=== PATIENT | female | born 1985 | race Caucasian/White ===

== ENCOUNTER 2016-09-19 13:56 | Outpatient (CLI) | payer MEDICAID ==
[~2016-09-19] VITALS: Ht 165.1 cm; Wt 76.2 kg
[~2016-09-19 13:56] MED LIST: ACHD5005 PO; CEPH500C PO; CLIN150C17 PO; DOXY100C2 PO; HYDR-3714 PO; HYDR-757 PO; IBUP-1780 PO; MPR22TI TP; PRM25T PO; SULF-222 PO; SULF1TAB35 PO
[2016-09-19 14:04] VITALS: BP 111/82
[2016-09-19] MEDS ORDERED: PNV91TAB3 PO (14:12)
[2016-09-19] MEDS ORDERED: RANI75TA21 PO (14:12)
[2016-09-19] MEDS ORDERED: ACETAMINOPHEN 500 MG TAB (TYLENOL) ONE (14:38)
[2016-09-19] MEDS ORDERED: ACETAMINOPHEN 500 MG TAB (TYLENOL) PO ONE (14:45)
[2016-09-19 14:57] LABS: BASOPHILS # (AUTO) 0.1 10^3/uL (0.0-0.1); BASOPHILS % (AUTO) 1 % (0-10); EOSINOPHILS # (AUTO) 0.2 10^3/uL (0.0-0.3); EOSINOPHILS % (AUTO) 2 % (0-10); LYMPHOCYTES # (AUTO) 2.1 X 10^3 (1.0-4.0); LYMPHOCYTES % (AUTO) 25 % (12-44); MEAN CORPUSCULAR HEMOGLOBIN 34 PG (25-34); MEAN CORPUSCULAR HGB CONC 36 G/DL (32-36); MEAN CORPUSCULAR VOLUME 93 FL (80-99); MEAN PLATELET VOLUME 9.7 FL (7.4-10.4); MONOCYTES # (AUTO) 0.6 X 10^3 (0.0-1.0); MONOCYTES % (AUTO) 8 % (0-12); NEUTROPHILS # (AUTO) 5.3 X 10^3 (1.8-7.8); NEUTROPHILS % (AUTO) 65 % (42-75); PLATELET COUNT 200 10^3/uL (130-400); RED BLOOD COUNT 3.57 10^6/uL (4.35-5.85); WHITE BLOOD COUNT 8.3 10^3/uL (4.3-11.0)
[2016-09-19] MEDS ORDERED: URSO500T9 PO (15:23)
[2016-09-19 15:24] LABS: ALANINE AMINOTRANSFERASE 13 U/L (0-55); ANION GAP 8 MMOL/L (5-14); ASPARTATE AMINO TRANSFERASE 21 U/L (5-34); BILIRUBIN,TOTAL 0.4 MG/DL (0.1-1.0); BLOOD UREA NITROGEN 4 MG/DL (7-18); BUN/CREATININE RATIO 7; CALCIUM 8.2 MG/DL (8.5-10.1); CARBON DIOXIDE 22 MMOL/L (21-32); CHLORIDE 108 MMOL/L (98-107); CREATININE SERUM 0.58 MG/DL (0.60-1.30); GFR ESTIMATED > 60; GLUCOSE 103 MG/DL (70-105); POTASSIUM 3.5 MMOL/L (3.6-5.0); SODIUM 138 MMOL/L (135-145); TOTAL PROTEIN 5.2 G/DL (6.4-8.2)
[2016-09-19] MEDS ORDERED: FLU TRIvalent (5 YOA+) 2016-17 (AFLURIA) 0.5 ML IM ONE (15:45)
--- NOTE | 2016-09-20 09:03 | Physician Query-Final Dx ---
VÍCTOR BAÑUELOS 09/20/16 0903: Clinic Account Progress/Dx Physician Query: Please give diagnosis Date of Service Sep 19, 2016 at 13:56 VIDAL BARTLETT MD 09/22/16 1159: Clinic Account Progress/Dx DIAGNOSIS: Diagnosis false labor SARMAD,VÍCTOR Sep 20, 2016 09:03 VIDAL BARTLETT MD Sep 22, 2016 11:59
[2016-10-07] MEDS ORDERED: OXYC-465 PO (08:25)
[2016-10-07] MEDS ORDERED: DOCU100C37 PO (08:25)
[2016-10-07] MEDS ORDERED: IBUP-1780 PO (08:25)
== END 2016-09-19 16:05 | disposition home or self-care (01) ==
LOC: DELPENDDIS → LDRP 13:56 → WSo 13:56 → WS 15:54 → LDRP 15:54 → WSo 16:05
PROVIDERS: ATTEND Obstetrics & Gynecology
DX: O47.03 False labor before 37 completed weeks of gestation, third trimester (principal); Z3A.35 35 weeks gestation of pregnancy; Z23 Encounter for immunization
CPT/HCPCS: 36415; 80053; 85025; 90471; 99214

== ENCOUNTER 2016-09-28 14:02 | Outpatient (CLI) | payer MEDICAID ==
[~2016-09-28] VITALS: Ht 165.1 cm; Wt 71.9 kg
[~2016-09-28 14:02] MED LIST changes: +PNV91TAB3 PO; +RANI75TA21 PO; +URSO500T9 PO
[2016-09-28] MEDS ORDERED: RANI150T90 PO (14:17)
[2016-09-28 14:19] VITALS: BP 110/73
[2016-10-07] MEDS ORDERED: IBUP-1780 PO (08:25)
[2016-10-07] MEDS ORDERED: OXYC-465 PO (08:25)
[2016-10-07] MEDS ORDERED: DOCU100C37 PO (08:25)
== END 2016-09-28 14:31 | disposition home or self-care (01) ==
LOC: PREOP 14:02
PROVIDERS: ATTEND Obstetrics & Gynecology
DX: Z01.818 Encounter for other preprocedural examination (principal); Z11.2 Encounter for screening for other bacterial diseases; O34.211 Maternal care for low transverse scar from previous cesarean delivery; O99.013 Anemia complicating pregnancy, third trimester; D64.9 Anemia, unspecified
CPT/HCPCS: 87081

== ENCOUNTER 2016-10-06 06:04 | Inpatient (IN) | payer MEDICAID ==
[~2016-10-06] VITALS: Ht 165.1 cm; Wt 69.9 kg
[2016-10-06] VITALS (7 sets, daily range): BP systolic 99–129; BP diastolic 61–81
[~2016-10-06 06:04] MED LIST changes: +RANI150T90 PO
[2016-10-06] MEDS ORDERED: metroNIDAZOLE 500MG/100ML IVPB 100 ML IV ONE ×2 (06:15→07:00)
[2016-10-06] MEDS ORDERED: D5 LR IV SOLUTION 1,000 ML IV SCH ×2 (06:15→06:57)
[2016-10-06] MEDS ORDERED: ceFAZolin 2 GM/50 ML NS 50 ML IV ONE (06:15)
[2016-10-06] MEDS ORDERED: FAMOTIDINE 20MG/2ML IV (PEPCID) IV ONE ×2 (06:30→07:00)
[2016-10-06] MEDS ORDERED: CITRIC ACID/SOB CIT (BICITRA) 30 ML UDC PO ONE ×2 (06:30→07:00)
[2016-10-06] MEDS ORDERED: METOCLOPRAMIDE INJ 10 MG/2 ML (REGLAN) IV ONE ×2 (06:30→07:00)
[2016-10-06 06:50] LABS: BASOPHILS % (AUTO) 0 % (0-10); EOSINOPHILS # (AUTO) 0.2 10^3/uL (0.0-0.3); EOSINOPHILS % (AUTO) 2 % (0-10); LYMPHOCYTES # (AUTO) 2.2 X 10^3 (1.0-4.0); LYMPHOCYTES % (AUTO) 27 % (12-44); MEAN CORPUSCULAR HEMOGLOBIN 33 PG (25-34); MEAN CORPUSCULAR HGB CONC 36 G/DL (32-36); MEAN CORPUSCULAR VOLUME 94 FL (80-99); MEAN PLATELET VOLUME 9.6 FL (7.4-10.4); MONOCYTES # (AUTO) 0.9 X 10^3 (0.0-1.0); MONOCYTES % (AUTO) 12 % (0-12); NEUTROPHILS # (AUTO) 4.6 X 10^3 (1.8-7.8); NEUTROPHILS % (AUTO) 58 % (42-75); PLATELET COUNT 247 10^3/uL (130-400); WHITE BLOOD COUNT 7.9 10^3/uL (4.3-11.0)
[2016-10-06] MEDS ORDERED: ONDANSETRON 4 MG/2 ML (SDV) Z0FRAN ONE (06:59)
[2016-10-06] MEDS ORDERED: DEXAMETHASONE PF 10 MG/ML (DECADRON) VIAL ONE (06:59)
[2016-10-06] MEDS ORDERED: fentaNYL INJECTION 100 MCG/2 ML AMP ONE (06:59)
[2016-10-06] MEDS ORDERED: MEASLES,MUMPS,RUBELLA 1 EA INJ SC ONE (07:00)
[2016-10-06] MEDS ORDERED: MEPERIDINE (DEMEROL) INJ 100 MG/ML IM PRN (07:00)
[2016-10-06] MEDS ORDERED: PROMETHAZINE INJ 25 MG/ML (PHENERGAN) AMP IM PRN (07:00)
[2016-10-06] MEDS ORDERED: TETANUS,DIPTH,PERTUSS P/F (BOOSTRIX) 0.5 ML VIAL IM ONE (07:00)
[2016-10-06] MEDS ORDERED: LACTATED RINGERS 1,000 ML IV SCH ×2 (07:00)
[2016-10-06] MEDS ORDERED: ceFAZolin INJECTION 2,000 MG in NS (IVPB) 50 ML IV ONE (07:00)
[2016-10-06] MEDS ORDERED: LACTATED RINGERS 1,000 ML IV ONE (07:00)
--- NOTE | 2016-10-06 07:04 | History & Physical ---
History and Physical this patient is a 31-year-old for white female with an EDC of 4 3017 putting her at 30 757 weeks gestation. She had a history of hepatitis C. She has complicated by cholestasis of and by mild oligohydramnios. She is admitted now for repeat delivery. A GBS culture performed after 35 weeks gestation was negative. Patient denies rupture membranes or bleeding. Allergies are none Medications are vitamins ursodiol Past medical history, past surgical history, obstetric history, family history, social histories are per her antepartum record HEENT exam is normal Neck is supple no lymphadenopathy no thyromegaly Abdomen is gravid soft nontender nondistended Extreme show clubbing or cyanosis. There is no Homans sign. Pelvic exam is deferred Laboratory Tests 10/06/16 06:20 assessment and plan 37-5/7 weeks' gestation in a with cholestasis of and with mild oligohydramnios. This patient has had 4 previous deliveries and plan is for repeat delivery now. 37 5/7 weeks' gestation with cholestasis of and oligo and previous C- section Allergies and Home Medications Allergies Coded Allergies: codeine (Verified Allergy, Unknown, 09/28/16) Uncoded Allergies: TAPE (Allergy, Unknown, 03/28/07) Home Medications Pnv95/Ferrous Fumarate/FA 1 Each Tablet, 1 EACH PO DAILY, (Reported) Ranitidine HCl 150 Mg Tablet, 150 MG PO BID, (Reported) Ursodiol 500 Mg Tablet, 600 MG PO BID, (Reported) Clinical Quality Measures DVT/VTE Risk/Contraindication: Risk Factor Score Per Nursin RFS Level Per Nursing on Admit: 1=Low/No VTE PPX VIDAL BARTLETT MD Oct 06, 2016 7:04 am
[2016-10-06] MEDS ORDERED: D5 LR IV SOLUTION 1,000 ML IV ONE (07:07)
[2016-10-06] MEDS ORDERED: MIDAZOLAM 2 MG/2 ML (VERSED) VIAL ONE (07:45)
[2016-10-06] MEDS ORDERED: KETOROLAC 30 MG/ML VIAL ONE (07:59)
[2016-10-06] MEDS ORDERED: OXYTOCIN/NORMAL SALINE 500 ML IV ONE (07:59)
[2016-10-06] MEDS: OXYTOCIN/NORMAL SALINE 500 ML IV SCH ×2 (08:06→11:45)
[2016-10-06] MEDS: KETOROLAC 30 MG/ML VIAL IVP SCH ×3 (08:13→19:38)
[2016-10-06] MEDS ORDERED: diphenhydrAMINE 50 MG/ML INJ (BENADRYL) IV PRN (08:15)
[2016-10-06] MEDS ORDERED: NALOXONE 0.4 MG/ML 1 ML (NARCAN) VIAL IV PRN ×2 (08:15)
[2016-10-06] MEDS ORDERED: METOCLOPRAMIDE INJ 10 MG/2 ML (REGLAN) IV PRN (08:15)
[2016-10-06] MEDS ORDERED: ONDANSETRON 4 MG/2 ML (SDV) Z0FRAN IV PRN (08:15)
[2016-10-06] MEDS: oxyCODONE/APAP 10/325MG (PERCOCET 10) TABLET PO PRN ×3 (10:55→22:01)
--- NOTE | 2016-10-06 11:12 | OPERATIVE REPORT ---
PROCEDURE PHYSICIAN: VIDAL BARTLETT DATE OF PROCEDURE: 10/06/2016 DATE OF DICTATION: 10/06/2016 PREOPERATIVE DIAGNOSIS: 37-5/7 weeks gestation with 4 previous C-sections and with oligohydramnios and with cholestasis of . POSTOPERATIVE DIAGNOSIS: 37-5/7 weeks gestation with 4 previous C-sections and with oligohydramnios and with cholestasis of . OPERATIVE PROCEDURE: Repeat low transverse delivery of a viable female infant with Apgars of 8 and 8 at one and five minutes respectfully, weight of 5 pounds 7 ounces. Cord blood pH of 7.29. time of 0736. OPERATIVE DESCRIPTION: With the patient in the supine position, under satisfactory spinal anesthesia, she was prepped and draped usual fashion for abdominal surgery. Slaughter cath was placed in the urinary bladder. A repeat Pfannenstiel incision made through the skin with scalpel by removing the patient's previous lower Pfannenstiel incisional scar. The abdomen was entered in the usual manner. Bladder retractor placed in position, clean scalpel used to make a 4 cm hysterotomy incision transversely across the lower uterine segment; that was extended by blunt dissection as well. The membranes were intact and bulging through the incision. At this point they were ruptured releasing a small amount of clear fluid. A vigorous viable female infant was delivered via the uterine incision from a alejandra breech position. An ultrasound on the day prior had shown a alejandra breech position. The delivery was atraumatic. The infant was bulb suctioned on completion of delivery. The umbilical cord was doubly clamped and cut and infant passed to nurse Castro, the pediatric nurse in attendance for delivery. Cord bloods were obtained including an arterial blood pH, which had a value of 7.29. The placenta then was delivered spontaneously Mj which was normal with a 3 vessel cord. The uterus was exteriorized, interior wiped clean with a wet laparotomy sponge. Uterine incision then closed with running locked suture of 2-0 Vicryl. Hemostasis was satisfactory. The uterus was returned to the abdominal cavity. All blood clot and debris removed from the abdominal cavity. With sponge and needle counts correct and hemostasis assured, the anterior parietal peritoneum was closed running suture of 2-0 Vicryl. The rectus muscles were closed with that suture well. The rectus fascia was closed with 2-0 Vicryl. Subcutaneous tissue with 2-0 Vicryl and the skin was stapled. During the closure, the patient apparently did experience a seizure. This patient has a history of seizure disorder with last seizure being over year ago and she has not been on medications per her neurologist. She recovered promptly and was alert, oriented. She did not seem to be postictal following the seizure. The procedure was otherwise uncomplicated. Estimated blood loss was around 300 mL sponge and needle counts were correct on completion of delivery. The patient was transferred to the recovery room in stable condition. The had been taken stable to the full term nursery under the care of nurse Castro. Job ID: [id number] Dictated Date: 10/06/2016 08:06:07 Conservation Or Heritage Architect Date: 10/06/2016 11:05:50 / jens
[2016-10-06] MEDS ORDERED: CATHETER FLUSH 10 ML SYR IV SCH (14:00)
[2016-10-06] MEDS: DOCUSATE SODIUM 100 MG (COLACE) CAP PO SCH (19:38)
[2016-10-07] MEDS: KETOROLAC 30 MG/ML VIAL IVP SCH (02:42)
[2016-10-07 04:00] VITALS: BP 111/63
[2016-10-07] MEDS: oxyCODONE/APAP 10/325MG (PERCOCET 10) TABLET PO PRN ×3 (07:04→20:55)
--- NOTE | 2016-10-07 08:24 | Progress Note-Standard ---
Standard Progress Note Progress Notes/Assess & Plan Progress/Assessment & Plan patient is without complaint. She is ambulating, voiding, tolerating fairly well, has good pain control. Patient denies chest pain, denies shortness of breath, denies nausea vomiting, denies headache. Vital Signs Date Time Temp Pulse Resp B/P (MAP) Pulse Ox O2 Delivery O2 Flow Rate FiO2 10/07/16 04:00 98.0 77 18 111/63 98 Room Air 10/06/16 23:47 98.3 81 18 105/64 96 Room Air 10/06/16 20:00 98.7 66 17 115/61 98 Room Air 10/06/16 16:00 98.0 66 17 109/67 98 Room Air 10/06/16 12:00 97.3 74 20 110/62 96 Room Air 10/06/16 09:42 97.6 72 19 106/74 97 Room Air 10/06/16 09:05 97.0 88 22 99/63 100 Room Air I & O 10/07/16 07:00 Intake Total 4140 ml Output Total 1580 ml Balance 2560 ml Vital signs are stable. Patient afebrile. Abdomen is benign. Incision clean dry and intact. Fundus is firm below the umbilicus and nontender Extremities show clubbing cyanosis. Homans sign. There is some pretibial pitting edema that is normal assessment and Plan postoperative day number 1 status post repeat doing well. Plan is for routine convalescence care today and allow for discharge home tomorrow VIDAL BARTLETT MD Oct 07, 2016 8:24 am
[2016-10-07] MEDS ORDERED: IBUP-1780 PO (08:25)
[2016-10-07] MEDS ORDERED: DOCU100C37 PO (08:25)
[2016-10-07] MEDS ORDERED: OXYC-465 PO (08:25)
--- NOTE | 2016-10-07 08:27 | Discharge Instructions ---
Discharge Instructions Discharge Medications New, Converted or Re-Newed RX: RX on Chart Patient Instructions Patient Instructions: as directed Return to The Hospital For: as directed Activity & Diet Discharge Diet: No Restrictions Activity as Tolerated: No Orders-Post D/C & Referrals Follow Up Appt: RTC Thursday, October 13, 2016 at 930 a.m. for incision check. Call to make follow up appt. for patient in 4 weeks. Wound Care: Remove leo, apply benzoin and steri strips. Activity Per routine post instructions. Please call in RX to patient pharmacy. Diet as tolerated Patient may shower or tub bathe as desired. Continue home meds VIDAL BARTLETT MD Oct 07, 2016 8:27 am
[2016-10-07] MEDS ORDERED: BENZOCAINE/MENTHOL (DERMOPLAST) 56 ML CAN TP PRN ×2 (08:30→18:30)
[2016-10-07] MEDS: DOCUSATE SODIUM 100 MG (COLACE) CAP PO SCH ×2 (10:26→22:06)
[2016-10-07] MEDS: IBUPROFEN 800 MG (MOTRIN) TAB PO SCH ×3 (10:27→22:04)
[2016-10-07 10:30] VITALS: BP 118/65
[2016-10-07 16:20] VITALS: BP 116/75
[2016-10-07] MEDS ORDERED: CITRIC ACID/SOB CIT (BICITRA) 30 ML UDC PO ONE (18:30)
[2016-10-07 22:00] VITALS: BP 111/65
[2016-10-08 04:00] VITALS: BP 98/58
[2016-10-08] MEDS: IBUPROFEN 800 MG (MOTRIN) TAB PO SCH ×2 (04:20→10:15)
--- NOTE | 2016-10-08 08:14 | Progress Note-Standard ---
Standard Progress Note Progress Notes/Assess & Plan Progress/Assessment & Plan patient is without complaint. She is ambulating, voiding, tolerating fairly well, has good pain control. Patient denies chest pain, denies shortness of breath, denies nausea vomiting, denies headache. Vital Signs Date Time Temp Pulse Resp B/P (MAP) Pulse Ox O2 Delivery O2 Flow Rate FiO2 10/07/16 04:00 98.0 77 18 111/63 98 Room Air 10/06/16 23:47 98.3 81 18 105/64 96 Room Air 10/06/16 20:00 98.7 66 17 115/61 98 Room Air 10/06/16 16:00 98.0 66 17 109/67 98 Room Air 10/06/16 12:00 97.3 74 20 110/62 96 Room Air 10/06/16 09:42 97.6 72 19 106/74 97 Room Air 10/06/16 09:05 97.0 88 22 99/63 100 Room Air I & O 10/07/16 07:00 Intake Total 4140 ml Output Total 1580 ml Balance 2560 ml Vital signs are stable. Patient afebrile. Abdomen is benign. Incision clean dry and intact. Fundus is firm below the umbilicus and nontender Extremities show clubbing cyanosis. Homans sign. There is some pretibial pitting edema that is normal assessment and Plan postoperative day number 1 status post repeat doing well. Plan is for routine convalescence care today and allow for discharge home tomorrow October 08, 2016 Patient is without complaint. She is ambulating, voiding, tolerating by mouth well, denies chest pain, denies shortness of breath, denies headache, denies nausea vomiting, patient has good pain control and is requesting discharge home. Vital Signs Date Time Temp Pulse Resp B/P (MAP) Pulse Ox O2 Delivery O2 Flow Rate FiO2 10/08/16 04:00 97.8 77 18 98/58 97 Room Air 10/07/16 22:00 98.6 78 18 111/65 96 Room Air 10/07/16 16:20 98.3 76 18 116/75 98 Room Air 10/07/16 10:30 98.2 75 18 118/65 97 Room Air I & O 10/08/16 07:00 Intake Total 600 ml Output Total 400 ml Balance 200 ml vital signs are stable. Patient is afebrile. Fundus is firm below the umbilicus and nontender. The incision is clean dry and intact. There is notable ecchymoses. Incision. However there is no induration no erythema and the wound is appropriately tender or sensitive postoperative state. Extremities show no clubbing or cyanosis. There is no Homans sign. There is some pretibial pitting edema that is normal. Assessment and plan postoperative day number 2 status post repeat doing well. Plan is for discharge home with follow-up in clinic. Final Diagnosis repeat delivery at 37-5/7 weeks' gestation with oligohydramnios and with cholestasis of and with previous C-sections 4 VIDAL BARTLETT MD Oct 08, 2016 8:14 am
[2016-10-08] MEDS: oxyCODONE/APAP 10/325MG (PERCOCET 10) TABLET PO PRN (09:24)
[2016-10-08] MEDS: DOCUSATE SODIUM 100 MG (COLACE) CAP PO SCH (09:24)
[2016-10-08 09:26] VITALS: BP 112/67
== END 2016-10-08 11:00 | disposition home or self-care (01) | DRG 765 ==
LOC: EEVIPCON 06:04 → LDRP 06:04
PROVIDERS: ADMIT Obstetrics & Gynecology; ATTEND Obstetrics & Gynecology
PROC: 10D00Z1 Extraction of Products of Conception, Low, Open Approach (ICD-10-PCS; principal; 2016-10-06 07:10)
DX: O34.211 Maternal care for low transverse scar from previous cesarean delivery (principal); O26.613 Liver and biliary tract disorders in pregnancy, third trimester; K83.1 Obstruction of bile duct; O41.03X0 Oligohydramnios, third trimester, not applicable or unspecified; Z37.0 Single live birth; Z3A.37 37 weeks gestation of pregnancy
CPT/HCPCS: 36415; 80306; 85025; 86850; 86900; 86901

== ENCOUNTER 2017-12-28 10:40 | Outpatient (CLI) | payer SELFPAY ==
[~2017-12-28] VITALS: Ht 165.1 cm; Wt 79.4 kg
[~2017-12-28 10:40] MED LIST changes: +DOCU100C37 PO; +OXYC-465 PO
[2017-12-28 10:46] VITALS: BP 115/69
[2017-12-28] MEDS ORDERED: CRAN1TAB5 PO (10:54)
[2017-12-28] MEDS ORDERED: PNV11TAB5 PO (10:54)
[2017-12-28] MEDS ORDERED: URSO300C3 PO (10:54)
[2017-12-28] MEDS ORDERED: HYDR-700 PO (10:54)
== END 2017-12-28 11:05 | disposition home or self-care (01) ==
LOC: PREOP 10:40
PROVIDERS: ATTEND Obstetrics & Gynecology
DX: Z01.818 Encounter for other preprocedural examination (principal); Z11.2 Encounter for screening for other bacterial diseases; O34.219 Maternal care for unspecified type scar from previous cesarean delivery
CPT/HCPCS: 87081

== ENCOUNTER 2018-01-02 14:40 | Outpatient (CLI) | payer MEDICAID ==
[~2018-01-02 14:40] MED LIST changes: +CRAN1TAB5 PO; +HYDR-700 PO; +PNV11TAB5 PO; +URSO300C3 PO
[2018-01-02 14:50] VITALS: BP 123/81
[2018-01-02 15:20] LABS: BILIRUBIN,URINE NEGATIVE (NEGATIVE); CLARITY,URINE CLEAR; COLOR,URINE YELLOW; GLUCOSE, URINE (UA) NEGATIVE (NEGATIVE); KETONES,URINE NEGATIVE (NEGATIVE); LEUKOCYTE ESTERASE ,URINE 2+ (NEGATIVE); NITRITE,URINE NEGATIVE (NEGATIVE); PH,URINE 7 (5-9); PROTEIN,URINE NEGATIVE (NEGATIVE); UROBILINOGEN,URINE NORMAL (NORMAL)
[2018-01-02 15:38] LABS: BACTERIA,URINE NEGATIVE /HPF; RBC,URINE 0-2 /HPF
--- NOTE | 2018-01-03 11:03 | Physician Query-Final Dx ---
VÍCTOR BAÑUELOS 01/03/18 1103: Clinic Account Progress/Dx Physician Query: Please give diagnosis Date of Service Jan 02, 2018 at 14:40 VIDAL BARTLETT MD 01/03/18 1147: Clinic Account Progress/Dx DIAGNOSIS: Diagnosis False labor VÍCTOR BAÑUELOS Jan 03, 2018 11:03 VIDAL BARTLETT MD Jan 03, 2018 11:47
[2018-01-03] MEDS ORDERED: DOCU-143 PO (11:49)
[2018-01-03] MEDS ORDERED: IBUP-1780 PO (11:49)
[2018-01-03] MEDS ORDERED: OXYC-465 PO (11:49)
== END 2018-01-02 16:00 | disposition home or self-care (01) ==
LOC: WSo 14:40 → LDRP 14:50 → 3RD 14:55 → LDRP 14:55 → WSo 16:00
PROVIDERS: ATTEND Obstetrics & Gynecology
DX: O47.9 False labor, unspecified (principal)
CPT/HCPCS: 81000; 87088; 99213

== ENCOUNTER 2018-01-03 09:58 | Inpatient (IN) | payer MEDICAID, OTHER ==
[~2018-01-03] VITALS: Ht 165.1 cm; Wt 78.6 kg
[2018-01-03 10:08] VITALS: BP 119/71
[2018-01-03] MEDS ORDERED: D5 LR IV SOLUTION 1,000 ML IV SCH (10:11)
[2018-01-03] MEDS ORDERED: metroNIDAZOLE 500MG/100ML IVPB 100 ML IV ONE ×2 (10:15)
[2018-01-03] MEDS ORDERED: ceFAZolin 2 GM IV Premixed 50 ML IV ONE (10:15)
[2018-01-03] MEDS ORDERED: ceFAZolin INJECTION 2,000 MG in NS (IVPB) 50 ML IV ONE (10:15)
[2018-01-03] MEDS ORDERED: raNItidine INJECTION 50 MG in NS (IVPB) 50 ML IV ONE (10:30)
[2018-01-03] MEDS ORDERED: CATHETER FLUSH 10 ML SYR IV PRN (10:30)
[2018-01-03] MEDS ORDERED: CITRIC ACID/SOB CIT (BICITRA) 30 ML UDC PO ONE (10:30)
[2018-01-03] MEDS ORDERED: METOCLOPRAMIDE INJ 10 MG/2 ML (REGLAN) IV ONE (10:30)
[2018-01-03 10:46] LABS: AMPHETAMINE SCREEN, URINE NEGATIVE (NEGATIVE); BARBITURATE SCREEN URINE NEGATIVE (NEGATIVE); BENZODIAZEPINES SCREEN URINE NEGATIVE (NEGATIVE); CANNABINOID SCREEN, URINE POSITIVE (NEGATIVE); COCAINE SCREEN URINE NEGATIVE (NEGATIVE); METHADONE STAT NEGATIVE (NEGATIVE); METHAMPHETAMINE SCREEN URINE S NEGATIVE (NEGATIVE); OPIATE SCREEN URINE NEGATIVE (NEGATIVE); OXYCODONE STAT NEGATIVE (NEGATIVE); PROPOXYPHENE STAT NEGATIVE (NEGATIVE); TRICYCLIC ANTIDEPRESSANTS SCRE NEGATIVE (NEGATIVE)
[2018-01-03 10:48] VITALS: BP 114/72
[2018-01-03 10:57] LABS: BASOPHILS % (AUTO) 1 % (0-10); EOSINOPHILS # (AUTO) 0.1 10^3/uL (0.0-0.3); EOSINOPHILS % (AUTO) 1 % (0-10); HEMATOCRIT 34 % (35-52); HEMOGLOBIN 12.4 G/DL (11.5-16.0); LYMPHOCYTES # (AUTO) 1.5 X 10^3 (1.0-4.0); LYMPHOCYTES % (AUTO) 20 % (12-44); MEAN CORPUSCULAR HEMOGLOBIN 34 PG (25-34); MEAN CORPUSCULAR HGB CONC 37 G/DL (32-36); MEAN CORPUSCULAR VOLUME 91 FL (80-99); MEAN PLATELET VOLUME 9.6 FL (7.4-10.4); MONOCYTES # (AUTO) 0.5 X 10^3 (0.0-1.0); MONOCYTES % (AUTO) 7 % (0-12); NEUTROPHILS # (AUTO) 5.3 X 10^3 (1.8-7.8); NEUTROPHILS % (AUTO) 72 % (42-75); PLATELET COUNT 191 10^3/uL (130-400); RED BLOOD COUNT 3.69 10^6/uL (4.35-5.85); RED CELL DISTRIBUTION WIDTH 11.5 % (10.0-14.5); WHITE BLOOD COUNT 7.3 10^3/uL (4.3-11.0)
[2018-01-03] MEDS ORDERED: ceFAZolin 2 GM IV Premixed 50 ML ONE (11:29)
[2018-01-03] MEDS ORDERED: OXYTOCIN/NORMAL SALINE 500 ML IV ONE (11:43)
[2018-01-03] MEDS ORDERED: LACTATED RINGERS 1,000 ML IV ONE (11:43)
[2018-01-03] MEDS ORDERED: morphine PF (DURAMORPH) 10 MG/10 ML AMP ONE (11:43)
--- NOTE | 2018-01-03 11:46 | History & Physical ---
History and Physical Date Seen by Provider: Jan 03, 2018 Time Seen by Provider: 11:42 This patient is a 32-year-old via white female with a due date is 3017. This being complicated by cholestasis of which has been symptomatically controlled with ursodiol. Patient's is also complicated by gestational diabetes that has been controlled with metformin .Patient also has a history of hepatitis C and of gestational diabetes. She is also been followed for progressive oligohydramnios. Patient is now past 37 weeks gestation plan is for repeat delivery. Patient has requested removal of her fallopian tubes to decrease her lifetime risk for pelvic cancer. She understands and accepts that she will no longer be able to conceive after her fallopian tubes were removed. She accepts that undesired side effects in order to gain the protection and benefits of risk reduction by virtue of the salpingectomy patient denies rupture membranes or bleeding. She does have occasional contraction. She does feel baby moving. She had a GBS culture after 35 weeks gestation that was negative. Allergies are none Medications are vitamins ursodiol and metformin Past medical history, past surgical history, obstetric history, family history, social histories are per the antepartum record HEENT exam is normal Neck is supple no lymphadenopathy no thyromegaly Abdomen is gravid soft nontender nondistended Extremities show no clubbing cyanosis. There is no Homans sign. There is some pretibial pitting edema that is normal. Pelvic exam is deferred Laboratory Tests 01/03/18 10:37 Assessment and plan term at 37+ weeks' gestation in a patient with gestational diabetes/cholestasis of /hepatitis C/previous C-sections 5 /oligohydramnios/request for RR past. Surgical risks complications recovery and follow-up have been fully discussed. Patient accepts those risks and is ready to proceed. Term at 37-2/7 weeks' gestation with cholestasis of / gestational diabetes/oligohydramnios Allergies and Home Medications Allergies Coded Allergies: codeine (Verified Allergy, Unknown, 09/28/16) Uncoded Allergies: TAPE (Allergy, Unknown, 03/28/07) Home Medications Cranberry Conc/C/Bacill Coag 1 Each Tablet, 1 EACH PO DAILY, (Reported) Hydroxyzine HCl 25 Mg Tablet, 25 MG PO Q6H PRN for ITCHING, (Reported) Pxc897/FA/Omega3/Dha/Fish Oil 1 Each Tab.chew, 1 EACH PO DAILY, (Reported) Ranitidine HCl 150 Mg Tablet, 150 MG PO BID, (Reported) Ursodiol 300 Mg Capsule, 900 MG PO BID, (Reported) take 3 (300mg) tabs Patient Home Medication List Home Medication List Reviewed: Yes Clinical Quality Measures DVT/VTE Risk/Contraindication: Risk Factor Score Per Nursin RFS Level Per Nursing on Admit: 1=Low/No VTE PPX VIDAL BARTLETT MD Jan 03, 2018 11:46 am
[2018-01-03] MEDS ORDERED: BUPIVACAINE 0.5% 30 ML (SENSORCAINE) VIAL ONE (11:48)
[2018-01-03] MEDS ORDERED: DOCU-143 PO (11:49)
[2018-01-03] MEDS ORDERED: IBUP-1780 PO (11:49)
[2018-01-03] MEDS ORDERED: OXYC-465 PO (11:49)
--- NOTE | 2018-01-03 11:50 | Discharge Instructions ---
Discharge Instructions Discharge Medications New, Converted or Re-Newed RX: RX on Chart Patient Instructions Patient Instructions: As directed Return to The Hospital For: As directed Activity & Diet Discharge Diet: No Restrictions Activity as Tolerated: No Orders-Post D/C & Referrals Follow Up Appt: RTC on Sunday, January 11, 2018 at 930 a.m. for incision check. Call to make follow up appt. for patient in 4 weeks. Wound Care: Remove leo, apply benzoin and steri strips. Activity Per routine post instructions. Please call in RX to patient pharmacy. Diet as tolerated Patient may shower or tub bathe as desired. Continue home meds VIDAL BARTLETT MD Jan 03, 2018 11:50 am
[2018-01-03 11:54] LABS: ALANINE AMINOTRANSFERASE 11 U/L (0-55); ALBUMIN 3.2 GM/DL (3.2-4.5); ALKALINE PHOSPHATASE 126 U/L (40-136); BILIRUBIN,TOTAL 0.7 MG/DL (0.1-1.0); BUN/CREATININE RATIO 9; CALCIUM 8.5 MG/DL (8.5-10.1); CARBON DIOXIDE 18 MMOL/L (21-32); CHLORIDE 110 MMOL/L (98-107); CREATININE SERUM 0.66 MG/DL (0.60-1.30); GFR ESTIMATED > 60; GLUCOSE 78 MG/DL (70-105); POTASSIUM 3.4 MMOL/L (3.6-5.0); SODIUM 138 MMOL/L (135-145); TOTAL PROTEIN 5.6 GM/DL (6.4-8.2)
[2018-01-03] MEDS ORDERED: MIDAZOLAM 2 MG/2 ML (VERSED) VIAL ONE (12:26)
[2018-01-03] MEDS ORDERED: LACTATED RINGERS 1,000 ML IV SCH (12:36)
[2018-01-03] MEDS ORDERED: diphenhydrAMINE 50 MG/ML INJ (BENADRYL) IV PRN (12:45)
[2018-01-03] MEDS ORDERED: ONDANSETRON 4 MG/2 ML (SDV) Z0FRAN IV PRN (12:45)
[2018-01-03] MEDS ORDERED: NALOXONE 0.4 MG/ML 1 ML (NARCAN) VIAL IM PRN (12:45)
[2018-01-03] MEDS ORDERED: METOCLOPRAMIDE INJ 10 MG/2 ML (REGLAN) IV PRN (12:45)
[2018-01-03] MEDS ORDERED: D5 LR IV SOLUTION 1,000 ML IV ONE (13:42)
[2018-01-03] MEDS ORDERED: MEPERIDINE (DEMEROL) INJ 100 MG/ML IM PRN (13:45)
[2018-01-03] MEDS ORDERED: PROMETHAZINE INJ 25 MG/ML (PHENERGAN) AMP IM PRN (13:45)
[2018-01-03] MEDS ORDERED: TETANUS,DIPTH,PERTUSS P/F (BOOSTRIX) 0.5 ML VIAL IM ONE (13:45)
[2018-01-03] MEDS ORDERED: ONDANSETRON 4 MG/2 ML (SDV) Z0FRAN IVP PRN (13:45)
[2018-01-03] MEDS ORDERED: MEASLES,MUMPS,RUBELLA 1 EA INJ SC ONE (13:45)
[2018-01-03] MEDS: KETOROLAC 30 MG/ML VIAL IVP SCH ×2 (15:34→21:34)
[2018-01-03 16:53] VITALS: BP 106/65
[2018-01-03] MEDS: DOCUSATE SODIUM 100 MG (COLACE) CAP PO SCH (20:16)
[2018-01-03] MEDS: oxyCODONE/APAP 10/325MG (PERCOCET 10) TABLET PO PRN (20:16)
--- NOTE | 2018-01-03 20:43 | OPERATIVE REPORT ---
DATE OF SERVICE: 01/03/2018 PREOPERATIVE DIAGNOSES: Term at 37+ weeks' gestation with cholestasis of , gestational diabetes, oligohydramnios and previous C-sections x5. Request for risk reducing salpingectomy. POSTOPERATIVE DIAGNOSES: Term at 37+ weeks' gestation with cholestasis of , gestational diabetes, oligohydramnios and previous C-sections x5. OPERATIVE PROCEDURE: Repeat low transverse delivery of a viable female infant with Apgars of 8 and 9 at 1 and 5 minutes respectively, weight of 5 pounds 9 ounces. time of 12:22 and a cord blood pH was 7.29. Risk reducing salpingectomy. OPERATIVE DESCRIPTION: With the patient in supine position under satisfactory spinal analgesia, she was prepped and draped in usual fashion for abdominal surgery. Slaughter catheter was placed in the urinary bladder. A repeat Pfannenstiel incision was made through the skin with scalpel and the patient's abdomen entered in the usual manner. Bladder retractor placed in position, clean scalpel used to make a 4 cm hysterotomy incision transversely across the lower uterine segment. The lower uterine segment was exceedingly thin comprised of peritoneum and membranes. There was a large uterine window occupying the lower anterior uterine segment. There were some adhesions of the peritoneum to the anterior and lateral surface of the uterus. These were taken down by sweeping free. With the incision into the uterine cavity, fairly dark meconium fluid was released. The incision was extended bluntly and then a vigorous viable female infant was delivered via the uterine incision. with Apgars of 8 and 9 at 1 and 5 minutes respectively and now the stats were as noted above. The was bulb suctioned on delivery of the head. The infant had a spontaneous lusty cry, moved all extremities, had excellent tone and reflexes and was very quickly pink. After delivery, the umbilical cord was doubly clamped and cut, and the was passed to nurse Burton, the pediatric nurse in attendance for delivery. Cord bloods were obtained. Placenta delivered spontaneously Barker. It was normal with a 3-vessel cord. The uterus was exteriorized and to wipe clean with a wet laparotomy sponge. Uterine incision was closed with a running locked suture of 2-0 Vicryl, taking care to obliterate the uterine window. The patient had requested risk reducing salpingectomy at this point, that was performed and the right fallopian tube was grasped and elevated. There were some adhesions of the tube to the ovary. These were lysed sharply and bluntly with electrocautery. Eventually, the mesosalpinx was divided from proximal to distal end and then the proximal and distal pedicle was ligated with a 2-0 chromic gut suture and then the tube was removed sharply. Same procedure was performed on the left. There was some bleeding along the ovary edge on the left. This was controlled with [id number] suture of 2-0 Vicryl. With hemostasis assured, no abnormal pathology. Uterus was returned to abdominal cavity. All blood clot and debris removed from the abdominal cavity. With sponge, needle counts correct, hemostasis assured. The anterior parietal peritoneum and the rectus muscles were reapproximated. The rectus fascia was closed with 2-0 Vicryl, subcutaneous tissue with 2-0 Vicryl and the skin was stapled. Sponge and needle counts were correct on completion of delivery. Estimated blood loss for delivery was around 400 mL. The patient tolerated the procedure well and remained in the OR for recovery. The baby was taken stable to the full-term nursery. Job ID: [id number] DocumentID: [id number] Dictated Date: 01/03/2018 13:01:50 Coordinator Of Evaluation Date: 01/03/2018 20:42:16 Dictated By: VIDAL BARTLETT MD
[2018-01-03 20:59] VITALS: BP 118/72
[2018-01-04] VITALS: BP 95/55
[2018-01-04] MEDS: oxyCODONE/APAP 10/325MG (PERCOCET 10) TABLET PO PRN ×4 (01:23→19:38)
[2018-01-04] MEDS: KETOROLAC 30 MG/ML VIAL IVP SCH ×2 (03:18→19:52)
[2018-01-04 04:00] VITALS: BP 89/55
--- NOTE | 2018-01-04 07:44 | Postpartum Progress Note ---
Note Note Day # 1 Subjective: Covering this patient for Dr. Dexter, POD 1 RLTCS. Patient is without complaints. Ambulating, voiding. Tolerating a regular diet without nausea or vomiting. Normal lochia. Pain is well controlled with oral pain medications. Objective: Vital Sign - Last 24 Hours 01/03/18 01/03/18 01/03/18 01/03/18 10:08 10:48 16:53 20:59 Temp 98.0 96.9 97.1 Pulse 81 82 74 80 Resp 18 18 20 20 B/P (MAP) 119/71 (87) 114/72 (86) 106/65 (79) 118/72 (87) Pulse Ox 96 98 O2 Delivery Room Air Room Air Room Air Room Air 01/04/18 01/04/18 00:00 04:00 Temp 97.6 97.8 Pulse 72 69 Resp 20 16 B/P (MAP) 95/55 (68) 89/55 (66) Pulse Ox 98 99 O2 Delivery Room Air Room Air Intake and Output 01/03/18 01/03/18 01/04/18 15:00 23:00 07:00 Intake Total 150 ml 1450 ml Output Total 600 ml 850 ml Balance -450 ml 600 ml Physical Exam: General - Alert and oriented, no apparent distress Abdomen - Soft, appropriately tender to palpation, non-distended, fundus firm at umbilicus Extremities - no edema, negative Ananda's bilaterally Incision- c/d/i Assessment: POD 1 RLTCS Labs pending Plan: Routine care. Encourage breast feeding. Encourage ambulation. Ferrous sulfate supplementation. Plan for discharge tomorrow Vitals - Labs Vital Signs - I&O Vital Signs Date Time Temp Pulse Resp B/P (MAP) Pulse Ox O2 Delivery O2 Flow Rate FiO2 01/04/18 04:00 97.8 69 16 89/55 (66) 99 Room Air 01/04/18 00:00 97.6 72 20 95/55 (68) 98 Room Air 01/03/18 20:59 97.1 80 20 118/72 (87) 98 Room Air 01/03/18 16:53 96.9 74 20 106/65 (79) 96 Room Air 01/03/18 10:48 82 18 114/72 (86) Room Air 01/03/18 10:08 98.0 81 18 119/71 (87) Room Air I & O 01/04/18 07:00 Intake Total 1600 ml Output Total 1450 ml Balance 150 ml Labs Laboratory Tests 01/03/18 10:00: Urine Opiates Screen NEGATIVE, Urine Oxycodone Screen NEGATIVE, Urine Methadone Screen NEGATIVE, Urine Propoxyphene Screen NEGATIVE, Urine Barbiturates Screen NEGATIVE, Ur Tricyclic Antidepressants Screen NEGATIVE, Urine Phencyclidine Screen NEGATIVE, Urine Amphetamines Screen NEGATIVE, Urine Methamphetamines Screen NEGATIVE, Urine Benzodiazepines Screen NEGATIVE, Urine Cocaine Screen NEGATIVE, Urine Cannabinoids Screen POSITIVEH 01/03/18 10:37: White Blood Count 7.3, Red Blood Count 3.69L, Hemoglobin 12.4, Hematocrit 34L, Mean Corpuscular Volume 91, Mean Corpuscular Hemoglobin 34, Mean Corpuscular Hemoglobin Concent 37H, Red Cell Distribution Width 11.5, Platelet Count 191, Mean Platelet Volume 9.6, Neutrophils (%) (Auto) 72, Lymphocytes (%) (Auto) 20, Monocytes (%) (Auto) 7, Eosinophils (%) (Auto) 1, Basophils (%) (Auto) 1, Neutrophils # (Auto) 5.3, Lymphocytes # (Auto) 1.5, Monocytes # (Auto) 0.5, Eosinophils # (Auto) 0.1, Basophils # (Auto) 0.0, Sodium Level 138, Potassium Level 3.4L, Chloride Level 110H, Carbon Dioxide Level 18L, Anion Gap 10, Blood Urea Nitrogen 6L, Creatinine 0.66, Estimat Glomerular Filtration Rate > 60, BUN/ Creatinine Ratio 9, Glucose Level 78, Calcium Level 8.5, Total Bilirubin 0.7, Aspartate Amino Transf (AST/SGOT) 21, Alanine Aminotransferase (ALT/SGPT) 11, Alkaline Phosphatase 126, Total Protein 5.6L, Albumin 3.2 CLAUDIA GARDINER DO Jan 04, 2018 07:44
[2018-01-04] MEDS: DOCUSATE SODIUM 100 MG (COLACE) CAP PO SCH ×2 (07:49→20:12)
[2018-01-04] MEDS ORDERED: TETANUS,DIPTH,PERTUSS P/F (BOOSTRIX) 0.5 ML VIAL IM ONE (07:50)
[2018-01-04] MEDS: FAMOTIDINE 20 MG (PEPCID) TABLET PO PRN (07:53)
[2018-01-04 08:00] VITALS: BP 95/64
--- NOTE | 2018-01-04 08:13 | Anesthesia-Regional Post-Op ---
Regional Patient Condition Mental Status: Alert, Oriented x3 Circulation: Same as Pre-Op Headache: Absent Sensation: Full Recovery Motor Block: Absent Post Op Complications Complications None Follow Up Care/Instructions Patient Instructions None needed. Anesthesia/Patient Condition Patient is doing well, no complaints, stable vital signs, no apparent adverse anesthesia problems. No complications reported per nursing. TAMMIE MEJIA CRNA Jan 04, 2018 08:13
[2018-01-04] MEDS: IBUPROFEN 800 MG (MOTRIN) TAB PO SCH ×2 (11:10→17:35)
[2018-01-04 12:00] VITALS: BP 121/78
[2018-01-04 17:35] VITALS: BP 115/79
[2018-01-04] MEDS: OXYTOCIN/NORMAL SALINE 500 ML IV SCH (19:52)
[2018-01-05] VITALS: BP 103/65
[2018-01-05] MEDS: oxyCODONE/APAP 10/325MG (PERCOCET 10) TABLET PO PRN ×2 (00:28→06:18)
[2018-01-05] MEDS: IBUPROFEN 800 MG (MOTRIN) TAB PO SCH ×2 (00:28→06:18)
[2018-01-05 06:00] VITALS: BP 121/76
[2018-01-05] MEDS: FAMOTIDINE 20 MG (PEPCID) TABLET PO PRN (06:18)
--- NOTE | 2018-01-05 07:52 | Postpartum Progress Note ---
Note Note Day # 2 Subjective: Covering for Dr. Dexter. Patient is without complaints. Ambulating, voiding. Tolerating a regular diet without nausea or vomiting. Normal lochia. Pain is well controlled with oral pain medications. Objective: Vital Sign - Last 24 Hours 01/04/18 01/04/18 01/04/18 01/05/18 08:00 12:00 17:35 00:00 Temp 97.2 97.6 98.1 97.8 Pulse 102 79 88 71 Resp 16 18 18 18 B/P (MAP) 95/64 (74) 121/78 (92) 115/79 (91) 103/65 (78) Pulse Ox 99 96 96 97 O2 Delivery Room Air Room Air Room Air Room Air 01/05/18 06:00 Temp 97.6 Pulse 84 Resp 18 B/P (MAP) 121/76 (91) Pulse Ox 98 O2 Delivery Room Air Physical Exam: General - Alert and oriented, no apparent distress Abdomen - Soft, appropriately tender to palpation, non-distended, fundus firm at umbilicus Extremities - no edema, negative Ananda's bilaterally Incision- c/d/i leo Assessment: POD 2 RLTCS Plan: Routine care. Encourage breast feeding. Encourage ambulation. Ferrous sulfate supplementation. Plan for discharge today Vitals - Labs Vital Signs - I&O Vital Signs Date Time Temp Pulse Resp B/P (MAP) Pulse Ox O2 Delivery O2 Flow Rate FiO2 01/05/18 06:00 97.6 84 18 121/76 (91) 98 Room Air 01/05/18 00:00 97.8 71 18 103/65 (78) 97 Room Air 01/04/18 17:35 98.1 88 18 115/79 (91) 96 Room Air 01/04/18 12:00 97.6 79 18 121/78 (92) 96 Room Air 01/04/18 08:00 97.2 102 16 95/64 (74) 99 Room Air CLAUDIA GARDINER DO Jan 05, 2018 7:52 am
[2018-01-05 09:57] VITALS: BP 116/64
[2018-01-05] MEDS: DOCUSATE SODIUM 100 MG (COLACE) CAP PO SCH (09:58)
== END 2018-01-05 11:05 | disposition home or self-care (01) | DRG 765 ==
LOC: LDRP 09:58
PROVIDERS: ADMIT Obstetrics & Gynecology; ATTEND Obstetrics & Gynecology
PROC: 0UT70ZZ Resection of Bilateral Fallopian Tubes, Open Approach (ICD-10-PCS; 2018-01-03)
PROC: 10D00Z1 Extraction of Products of Conception, Low, Open Approach (ICD-10-PCS; principal; 2018-01-03 11:56)
DX: O26.62 Liver and biliary tract disorders in childbirth (principal); O34.211 Maternal care for low transverse scar from previous cesarean delivery; O98.42 Viral hepatitis complicating childbirth; B18.2 Chronic viral hepatitis C; K83.0 Cholangitis; O41.03X0 Oligohydramnios, third trimester, not applicable or unspecified; O24.425 Gestational diabetes mellitus in childbirth, controlled by oral hypoglycemic drugs; Z79.84 Long term (current) use of oral hypoglycemic drugs; Z3A.37 37 weeks gestation of pregnancy; Z40.03 Encounter for prophylactic removal of fallopian tube(s); Z23 Encounter for immunization; Z37.0 Single live birth
CPT/HCPCS: 36415; 80053; 80306; 81000; 85025; 86850; 86900; 86901; 87088; 90715; 99213

== ENCOUNTER 2018-01-07 21:51 | Emergency (ER) | payer MEDICAID, OTHER ==
[~2018-01-07] VITALS: Ht 165.1 cm; Wt 78.6 kg
[~2018-01-07 21:51] MED LIST changes: +DOCU-143 PO
[2018-01-07] MEDS ORDERED: RX-ONDANSETRON 4 MG ODT (ZOFRAN) PPK #4 SL STA (22:22)
[2018-01-07] MEDS ORDERED: CEPH-507 PO (22:26)
--- NOTE | 2018-01-07 22:27 | ED General ---
General Chief Complaint: Skin/Wound Problems Stated Complaint: INCISION BLEEDING Nursing Triage Note: DRAINING SITE Nursing Sepsis Screen: No Definite Risk (KAMILLA GRAHAM MD) History of Present Illness Date Seen by Provider: Jan 07, 2018 Time Seen by Provider: 22:16 Initial Comments This is a 32 y.o female presenting to the ED complaining of excessive incision bleeding that has been going on since Sunday. Pt is S/P and bilateral tubal excision on 01/[address] Dexter. Pt states that her leo were removed on 01/05 and that the bleeding started with removal. She states that the wound gapped open some and was approximated using steri strips. When pt got home she states that her wound started spurting blood. She reports soaking through numerous pads and having to change steri strips over the past couple days. Pt states it is worse when standing. She states that she picked up one of her children yesterday. Pt denies any trauma, but states that her kids like to jump on her. Pt denies fever, chills, abnormal discharge, mal odors, dizziness, lightheadedness, passing out, urinary symptoms, blood in urine or stool. Patient reports feeling anxious, hot flashes, lower abdominal pain. (SYL BLACK MED STUDENT) Allergies and Home Medications Allergies Coded Allergies: codeine (Verified Allergy, Unknown, 09/28/16) Uncoded Allergies: TAPE (Allergy, Unknown, 03/28/07) Home Medications Cephalexin 500 Mg Capsule, 500 MG PO QID Prescribed by: KAMILLA BIRMINGHAM on 01/07/18 2226 Cranberry Conc/C/Bacill Coag 1 Each Tablet, 1 EACH PO DAILY, (Reported) Docusate Sodium 100 Mg Capsule, 100 MG PO BID Prescribed by: VIDAL MUNROE on 01/03/18 1149 Hydroxyzine HCl 25 Mg Tablet, 25 MG PO Q6H PRN for ITCHING, (Reported) Ibuprofen 800 Mg Tablet, 800 MG PO Q6H PRN for PAIN Prescribed by: VIDAL MUNROE on 01/03/18 1149 Oxycodone HCl/Acetaminophen 1 Each Tablet, 1-2 TAB PO Q4H PRN for PAIN Prescribed by: VIDAL MUNROE on 01/03/18 1149 Fcn747/FA/Omega3/Dha/Fish Oil 1 Each Tab.chew, 1 EACH PO DAILY, (Reported) Ranitidine HCl 150 Mg Tablet, 150 MG PO BID, (Reported) Ursodiol 300 Mg Capsule, 900 MG PO BID, (Reported) take 3 (300mg) tabs Patient Home Medication List Home Medication List Reviewed: Yes (SYL BLACK STUDENT) Review of Systems Constitutional: see HPI EENTM: no symptoms reported Respiratory: no symptoms reported Cardiovascular: no symptoms reported Gastrointestinal: see HPI Genitourinary: no symptoms reported, see HPI Musculoskeletal: no symptoms reported Skin: see HPI Psychiatric/Neurological: See HPI Hematologic/Lymphatic: See HPI (SYL BLACK STUDENT) Past Iuqliql-Ilqeod-Yxcsmw Hx Patient Social History Alcohol Use: Denies Use Recreational Drug Use: Yes Smoking Status: Current Everyday Smoker Type Used: Cigarettes 2nd Hand Smoke Exposure: Yes Recent Foreign Travel: No Contact w/Someone Who Travel: No Recent Infectious Disease Expo: No Recent Hopitalizations: No (KAMILLA GRAHAM MD) Immunizations Up To Date Tetanus Booster (TDap): Less than 5yrs PED Vaccines UTD: No (KAMILLA GRAHAM MD) Seasonal Allergies Seasonal Allergies: No (KAMILLA GRAHAM MD) Past Medical History Surgeries: Yes (CS X5) Section, Gallbladder, Tonsillectomy Respiratory: No Cardiac: No Neurological: Yes (last seizure 14 months ago) : No Reproductive Disorders: No Sexually Transmitted Disease: No HIV/AIDS: No Genitourinary: No Gastrointestinal: Yes (HEP C) Gastroesophageal Reflux, Hepatitis Musculoskeletal: No Endocrine: No (GESTIONAL DIABETES-=diet controlled) HEENT: No Loss of Vision: Denies Hearing Impairment: Denies Cancer: No Psychosocial: Yes Anxiety, Depression Integumentary: No Blood Disorders: No Adverse Reaction/Blood Tranf: No (N/A) (KAMILLA GRAHAM MD) Family Medical History Cardiovascular disease 19 MOTHER Hypertension 19 MOTHER No Pertinent Family Hx (KAMILLA GRAHAM MD) Physical Exam Vital Signs Vital Signs - First Documented 01/07/18 22:00 Temp 98.1 Pulse 87 Resp 24 B/P (MAP) 134/101 (112) Pulse Ox 95 O2 Delivery Room Air (SYL BLACK STUDENT) Vital Signs Capillary Refill : Less Than 3 Seconds (KAMILLA GRAHAM MD) Height, Weight, BMI Height: 5'5.00" Weight: 173lbs. 6.0oz. 78.623089gm; 28.9 BMI Method:Stated (KAMILLA GRAHAM MD) General Appearance: No Apparent Distress, Anxious Eyes: Bilateral Eye Normal Inspection Respiratory: Chest Non Tender, Lungs Clear, Normal Breath Sounds, No Accessory Muscle Use, No Respiratory Distress Cardiovascular: Regular Rate, Rhythm, No Edema, No Gallop, No JVD, No Murmur, Normal Peripheral Pulses Gastrointestinal: Normal Bowel Sounds, No Organomegaly, No Pulsatile Mass, Soft , Tenderness (lower abdomen along incsion site ) Neurologic/Psychiatric: Alert, Oriented x3, No Motor/Sensory Deficits, Normal Mood/Affect Skin: Other (horizontal csection incison along the lower abdomen, scant bloody drainage, no purulent drainage, erythema or malodor noted, mild ecchymosis surrounding incision. Wound is approximated with steri strips. ) (SYL BLACK) Progress/Results/Core Measures Suspected Sepsis Recent Fever Within 48 Hours: No Infection Criteria Present: None New/Unexplained Altered Menta: No Sepsis Screen: No Definite Risk SIRS Temperature:98.1 Pulse: 87 Respiratory Rate: 24 Blood Pressure 134 /101 Mean: 112 (KAMILLA GRAHAM MD) Results/Orders Vital Signs/I&O 01/07/18 01/07/18 22:00 22:33 Temp 98.1 98.1 Pulse 87 87 Resp 24 24 B/P (MAP) 134/101 (112) 134/101 (112) Pulse Ox 95 95 O2 Delivery Room Air (SYL BLACK) Vital Signs/I&O Capillary Refill : Less Than 3 Seconds (KAMILLA GRAHAM MD) Blood Pressure Mean: 112 Progress Note : Progress Note This patient was personally interviewed, seen, and examined by me along with DARYL Salguero student. I agree with her history, exam, assessment, and plan with the following additions. In addition to concern about the bloody and drainage, this POD#4 patient is also concerned about pain she has on the lateral edges of her section. She does not recall having this pain on prior sections. However, patient additionally had salpingectomies with this section which probably accounts for the increased pain on the lateral sides. Incision showed minimal dehiscence and extremely scant bleeding. Skin was cleaned with alcohol and the central Steri-Strips were replaced with Mastisol and new Steri-Strips. A wound culture of the drainage was obtained. Patient was started on Keflex as a precaution. The first dose was given in the ER. Exam Gen.: Alert, oriented, no acute distress, well-developed Cardiopulmonary: Normal breath sounds with normal effort Abdominal: Soft, appropriately tender around the incision Skin: Ecchymosis as expected around the incision, minimal dehiscence in the central portion of the incision with very scant bleeding (KAMILLA GRAHAM MD) Progress Note : Time: 22:16 Progress Note Pt seen and examined, wound is intact with only minor bloody drainage. Per patient description she most likely has a seroma. Wound was cleaned, loose steri-strips were removed and culture was obtained. Mastisol was applied and 3 steri strips were placed to approximate the wound. Pt was given an abdominal pad to control bleeding. One dose of Keflex was given, Zofran to take home to control nausea. Pt to call surgeon in the morning (SYL BLACK MED STUDENT) Departure Impression Primary Impression: Postoperative bleeding from incision Disposition: 01 HOME, SELF-CARE Condition: Improved Departure-Patient Inst. Decision time for Depature: 22:10 (KAMILLA GRAHAM MD) Referrals: NO,LOCAL PHYSICIAN (PCP/Family) Primary Care Physician Patient Instructions: NO INSTRUCTIONS GIVEN Add. Discharge Instructions: Try to leave the present Steri-Strips in place as long as they remain sticking to the skin. Avoid disruption of the incision site is much as possible. If bleeding or drainage returns, lay flat and apply some gentle pressure with weighted towel over her abdominal binder. Contact Dr. Dexter's office tomorrow morning for further instructions. Complete your antibiotic as prescribed. Return to care if symptoms are worsening. For nausea and vomiting , dissolve Zofran (ondansetron) under the tongue every 4 hours as needed. All discharge instructions reviewed with patient and/or family. Voiced understanding. Scripts Cephalexin (Keflex) 500 Mg Capsule 500 MG PO QID, #28 CAP Prov: KAMILLA GRAHAM MD 01/07/18 Copy Copies To 1: VIDAL DEXTER MD, JOSHUA T MD Jan 07, 2018 22:27 SYL BLACK MED STUDENT Jan 07, 2018 23:06
[2018-01-07] MEDS ORDERED: CEPHALEXIN 250 MG (KEFLEX) CAP PO ONE (22:30)
[2018-01-07 22:33] VITALS: BP 134/101
== END 2018-01-07 22:32 | disposition home or self-care (01) ==
LOC: EDUNIT# 21:51 → ER 21:54
DX: O72.1 Other immediate postpartum hemorrhage (principal); O99.335 Smoking (tobacco) complicating the puerperium; F17.210 Nicotine dependence, cigarettes, uncomplicated; O99.63 Diseases of the digestive system complicating the puerperium; K21.9 Gastro-esophageal reflux disease without esophagitis; O99.345 Other mental disorders complicating the puerperium; F41.9 Anxiety disorder, unspecified; F32.9 Major depressive disorder, single episode, unspecified; Z88.5 Allergy status to narcotic agent; Z88.8 Allergy status to other drugs, medicaments and biological substances; Z87.59 Personal history of other complications of pregnancy, childbirth and the puerperium
CPT/HCPCS: 87070; 87186; 87205; 99283

== ENCOUNTER 2018-02-07 05:38 | Outpatient (CLI) | payer MEDICAID ==
[~2018-02-07] VITALS: Ht 165.1 cm; Wt 69.6 kg
[~2018-02-07 05:38] MED LIST changes: +CEPH-507 PO
== END 2018-02-07 15:43 | disposition home or self-care (01) ==
LOC: PREOP 05:38
PROVIDERS: ATTEND Surgery
DX: Z01.818 Encounter for other preprocedural examination (principal)

== ENCOUNTER 2020-04-08 00:10 | Emergency (ER) | payer SELFPAY ==
[~2020-04-08] VITALS: Ht 167.7 cm; Wt 58.9 kg
[~2020-04-08 00:10] MED LIST changes: +HYDR-4226 PO; -HYDR-757 PO; -OXYC-465 PO; +OXYC-556 PO; +RANI-324 PO; -RANI75TA21 PO; +URSO500T10 PO; -URSO500T9 PO
--- NOTE | 2020-04-08 00:46 | ED Lower Extremity ---
General Chief Complaint: Lower Extremity Stated Complaint: FALL,RT ANKLE PAIN Source: patient Exam Limitations: no limitations History of Present Illness Date Seen by Provider: Apr 08, 2020 Time Seen by Provider: 00:35 Initial Comments Patient is a 35-year-old female who presents to the emergency department today with a chief complaint of right foot pain. Patient states that she got up this morning and promptly tripped over a wooden block in the floor. She states she heard a snap and felt immediate pain in the lateral aspect of her right foot in the area of the fifth metatarsal. Patient denies any injury to her knee or actual ankle. She did not fall and hit her head. She complains that her toes feel a little bit "numb". She is not able to bear weight on the full plantar surface of her foot but she is able to put some pressure on the ball of her foot at the base of her first toe. All other review of systems reviewed and negative except as stated. Onset: just prior to arrival Pain/Injury Location: right 5th toe Method of Injury: twisted Modifying Factors: Improves With Movement Allergies and Home Medications Allergies Coded Allergies: codeine (Verified Allergy, Unknown, 09/28/16) Uncoded Allergies: TAPE (Allergy, Unknown, 03/28/07) Home Medications Evl061/FA/Omega3/Dha/Fish Oil 1 Each Tab.chew, 1 EACH PO DAILY, (Reported) Ranitidine HCl 150 Mg Tablet, 150 MG PO BID, (Reported) Patient Home Medication List Home Medication List Reviewed: Yes Review of Systems Constitutional: no symptoms reported Respiratory: no symptoms reported Cardiovascular: no symptoms reported Gastrointestinal: no symptoms reported Genitourinary: no symptoms reported Musculoskeletal: other (Right foot pain proximal fifth metatarsal) Skin: no symptoms reported Past Irfwcwi-Edumff-Uhnsaj Hx Patient Social History Alcohol Use: Denies Use Recreational Drug Use: Yes Drug of Choice: MARIJUANA Type Used: Cigarettes 2nd Hand Smoke Exposure: Yes Recent Foreign Travel: No Contact w/Someone Who Travel: No Recent Hopitalizations: No Physical Abuse: No Sexual Abuse: No Mistreated: No Fear: No Immunizations Up To Date Tetanus Booster (TDap): Less than 5yrs PED Vaccines UTD: No Seasonal Allergies Seasonal Allergies: No Past Medical History Surgeries: Yes (CS X6; BILATERAL OOPHORECTOMY) Section, Gallbladder, Tonsillectomy Respiratory: No Cardiac: No Neurological: Yes Seizure Disorder Reproductive Disorders: No Sexually Transmitted Disease: No HIV/AIDS: No Genitourinary: No Gastrointestinal: Yes (HEP C) Gastroesophageal Reflux, Hepatitis Musculoskeletal: No Endocrine: No (GESTATIONAL DIABETES) HEENT: No Loss of Vision: Denies Hearing Impairment: Denies Cancer: No Psychosocial: Yes Anxiety, Depression Integumentary: No Blood Disorders: No Adverse Reaction/Blood Tranf: No (N/A) Family Medical History Cardiovascular disease 19 MOTHER Hypertension 19 MOTHER No Pertinent Family Hx Physical Exam Vital Signs Vital Signs - First Documented 04/08/20 00:17 Temp 36.7 Pulse 80 Resp 16 B/P (MAP) 128/83 (98) O2 Delivery Room Air Capillary Refill : Height, Weight, BMI Height: 5'5.00" Weight: 153lbs. 6.0oz. 69.460362ox; 25.5 BMI Method:Stated General Appearance: WD/WN, no apparent distress Cardiovascular: regular rate, rhythm Respiratory: no respiratory distress, no accessory muscle use Knees: right knee non-tender, right knee normal inspection, right knee normal range of motion, right knee no evidence of injury Ankles: right ankle non-tender, right ankle normal inspection, right ankle normal range of motion, right ankle no evidence of injury Feet: right foot bone tenderness (Base of the fifth metatarsal), right foot pain Neurologic/Tendon: normal sensation Neurologic/Psychiatric: alert, normal mood/affect, oriented x 3 Skin: normal color, warm/dry Progress/Results/Core Measures Results/Orders My Orders Orders - LUZ MARINA DUNAWAY MD Foot, Right, 3 View (04/08/20 00:27) Vital Signs/I&O 04/08/20 00:17 Temp 36.7 Pulse 80 Resp 16 B/P (MAP) 128/83 (98) O2 Delivery Room Air Progress Progress Note : Time: 00:45 Progress Note 35-year-old female with a chief complaint of right foot pain after stepping onto a wooden block this morning. Patient has significant tenderness at the base of the fifth metatarsal on her right foot. Otherwise no complaints of injury. X- rays are pending. Diagnostic Imaging Diagonstic Imaging: Xray Plain Films/CT/US/NM/MRI: other (foot) Comments Foot Xray: bony structures appear intact without fracture or dislocation Reviewed: Reviewed by Me Departure Impression Primary Impression: Sprain or strain of foot Disposition: 01 HOME, SELF-CARE Condition: Stable Departure-Patient Inst. Decision time for Depature: 01:05 Referrals: JOSHUA OQUENDO MD (PCP/Family) Primary Care Physician Patient Instructions: Foot Sprain (DC) Add. Discharge Instructions: Jarred Wrap foot for comfort Over the counter Ibuprofen or Alleve for pain. Elevate your foot to reduce swelling. Work note provided for limited use of right foot/ walking. Follow up with your family doctor for any further issues. This should get better withing about 3 days. All discharge instructions reviewed with patient and/or family. Voiced understanding. Work/School Note: Work Release Form Date Seen in the Emergency Department: Apr 08, 2020 Other Restrictions Listed Below: Limited walking/ use of right foot for 3 days. LUZ MARINA DUNAWAY MD Apr 08, 2020 00:46
[2020-04-08] MEDS ORDERED: NAPROXEN 250 MG (NAPROSYN) TABLET PO ONE (01:15)
[2020-04-08 01:32] VITALS: BP 128/83
--- NOTE | 2020-04-08 06:11 | Diagnostic Imaging Report ---
EXAMINATION: Right foot at 1244 AM INDICATION: Injury, foot pain Three views were obtained. There is no fracture, dislocation or acute bony abnormality evident. The Lisfranc joint seems well maintained and appear similar to the prior exam of 10/08/2015. The soft tissues are unremarkable. IMPRESSION: There is no evidence for an acute bony abnormality. Dictated by: Dictated on workstation # [id number]
== END 2020-04-08 01:32 | disposition home or self-care (01) ==
LOC: EDUNIT# 00:10 → ER 00:13
DX: S93.691A Other sprain of right foot, initial encounter (principal); K21.9 Gastro-esophageal reflux disease without esophagitis; Z82.49 Family history of ischemic heart disease and other diseases of the circulatory system; Z77.22 Contact with and (suspected) exposure to environmental tobacco smoke (acute) (chronic); Z88.5 Allergy status to narcotic agent; W23.1XXA Caught, crushed, jammed, or pinched between stationary objects, initial encounter
CPT/HCPCS: 73630